=== PATIENT | male | born 1985 | race Caucasian/White ===

== ENCOUNTER 2019-01-09 06:45 | Emergency (ER) | payer MEDICAID ==
[~2019-01-09] VITALS: Ht 180.3 cm; Wt 138.1 kg
[2019-01-09 06:50] VITALS: BP 168/102
--- NOTE | 2019-01-09 06:50 | NUR ---
AMBULATED TO ER BED 7
--- NOTE | 2019-01-09 07:24 | NUR ---
PT C/O OF EYE PAIN BILATERAL X 3 DAYS. LEFT EYE HAS SWELLING REDNESS AND SOME MILD DISCHARGE AND THE RIGHT EYE HAS SOME MILD SWELLING AND REDNESS. PT DENIES TRAUMA. . DENIES N/V/D; SKIN IS PINK/WARM/DRY; AAOX4 WITH EVEN AND STEADY GAIT; LUNGS CLEAR BL; HR EVEN AND REGULAR; PT DENIES ANY FEVER, CP, SOB, OR COUGH AT THIS TIME; PATIENT STATES PAIN OF 8/10 AT THIS TIME; VSS; PATIENT POSITIONED FOR COMFORT; HOB ELEVATED; BEDRAILS UP X2; BED DOWN. ER MD MADE AWARE OF PT STATUS.
[2019-01-09] MEDS ORDERED: KETOROLAC 15 MG/ML VIAL IM ONE (08:10)
[2019-01-09] MEDS ORDERED: CLINDAMYCIN 150 MG CAP PO ONE (08:10)
[2019-01-09] MEDS ORDERED: AMOXICILLIN 500 MG CAP PO ONE ×2 (08:20→08:30)
[2019-01-09] MEDS ORDERED: AMOXICILLIN SUSP 250 MG/5 ML PO SCH (09:00)
--- NOTE | 2019-01-09 09:33 | NUR ---
visual acuity L 20/20 AND R 20/20.
[2019-01-09 09:37] VITALS: BP 138/89
--- NOTE | 2019-01-09 09:38 | NUR ---
Patient discharged with v/s stable. Written and verbal after care instructions given and explained. Patient alert, oriented and verbalized understanding of instructions. Ambulatory with steady gait. All questions addressed prior to discharge. ID band removed. Patient advised to follow up with PMD. Rx of clindamycin and amoxicillin given. Patient educated on indication of medication including possible reaction and side effects. Opportunity to ask questions provided and answered.
== END 2019-01-09 09:38 | disposition home or self-care (01) ==
LOC: MED 06:45
DX: H05.012 Cellulitis of left orbit (principal)
CPT/HCPCS: 96372; 99283; J1885

== ENCOUNTER 2020-03-30 04:00 | Emergency (ER) | payer MEDICAID ==
[~2020-03-30] VITALS: Ht 180.3 cm; Wt 136.1 kg
--- NOTE | 2020-03-30 04:19 | NUR ---
PT AMBULATED TO BED 09 WITH STEADY GAIT.
--- NOTE | 2020-03-30 04:30 | NUR ---
34 Y/O MALE PRESENTED TO ED C/O LUQ/LLQ ABD PAIN X 30 MIN . PT STATES HE SUDDENLY STARTED HAVING LEFT ABD PAIN THAT RADIATES TO HIS LEFT GROIN. PT DENIES N/V/D/F/DYSURIA. PT NORMOACTIVE BS IN ALL 4 QUADS. UPON PALPATION ABDOMEN ROUND, SOFT AND TENDER TO TOUCH ON LEFT SIDE. PT DENIES SOB. PT STATES HE HAS NOT TAKEN ANY MEDICATION FOR THE PAIN. PT BREATHING EVEN AND UNLABORED. A/O X 4. PT RESTING IN BED , LOCKED AND IN LOWEST POSITION, HOB ELEVATED , SIDE RAIL X 1. PT CONNECTED TO LOOM INSPECTOR , PULSE OX AND BP CUFF. PMH: PT DENIES NKA
--- NOTE | 2020-03-30 04:37 | NUR ---
Dr. Alvarez examining patient.
--- NOTE | 2020-03-30 04:45 | NUR ---
BLOOD LABS AND URINE SAMPLE COLLECTED AND WALKED TO LAB.
[2020-03-30] MEDS ORDERED: ONDANSETRON 4 MG/2 ML VIAL IVP ONE (04:50)
[2020-03-30] MEDS ORDERED: MORPHINE SULFATE 4 MG/ML SYR IVP ONE (04:50)
[2020-03-30 05:01] LABS: APPEARANCE,URINE CLEAR (CLEAR); BILIRUBIN,URINE NEGATIVE (NEGATIVE); BLOOD, URINE 1+ (NEGATIVE); COLOR,URINE YELLOW (YELLOW); LEUKOCYTE ESTERASE ,URINE NEGATIVE (NEGATIVE); NITRITE, URINE NEGATIVE (NEGATIVE); UGLUCOSE NEGATIVE (NEGATIVE)
[2020-03-30 05:06] LABS: BASOPHILS # (AUTO) 0.1 K/uL (0.00-0.22); EOSINOPHILS # (AUTO) 0.2 K/uL (0-0.4); EOSINOPHILS % (AUTO) 2.1 % (0.0-4.0); HEMATOCRIT 46.2 % (36-52); HEMOGLOBIN 15.1 g/dL (12.0-18.0); LYMPHOCYTES # (AUTO) 3.1 K/uL (2.0-11.5); LYMPHOCYTES % (AUTO) 37.2 % (20.5-51.1); MEAN CORPUSCULAR HEMOGLOBIN 26 pg (27-31); MEAN CORPUSCULAR HGB CONC 33 g/dL (33-37); MEAN CORPUSCULAR VOLUME 80.6 fL (80-94); MONOCYTES # (AUTO) 0.8 K/uL (0.8-1.0); MONOCYTES % (AUTO) 9.9 % (1.7-9.3); NEUTROPHILS # (AUTO) 4.2 K/uL (1.8-7.7); NEUTROPHILS % (AUTO) 49.8 % (42.2-75.2); PLATELET COUNT (AUTO) 306 K/uL (140-450); RED BLOOD CELL COUNT(AUTO) 5.73 MIL/uL (4.20-6.10); RED CELL DISTRIBUTION WIDTH 15.1 % (11.6-13.7); WHITE BLOOD COUNT (AUTO) 8.4 K/uL (4.8-10.8)
--- NOTE | 2020-03-30 05:10 | NUR ---
PT TO CT VIA W/C.
[2020-03-30 05:12] LABS: WBC,URINE 0-5 /HPF (0-5)
--- NOTE | 2020-03-30 05:19 | NUR ---
PT RETURN FROM CT
[2020-03-30 05:32] LABS: ALBUMIN 3.4 g/dL (3.4-5.0); ANION GAP 14.9 (8-16); CARBON DIOXIDE 24.8 mmol/L (21-32); POTASSIUM 3.7 mmol/L (3.5-5.1); TOTAL BILIRUBIN 0.2 mg/dL (0.0-1.0)
[2020-03-30] MEDS ORDERED: KETOROLAC 15 MG/ML VIAL IVP ONE (06:05)
[2020-03-30 06:29] VITALS: BP 119/67
== END 2020-03-30 06:29 | disposition home or self-care (01) ==
LOC: MED 04:00
DX: K59.00 Constipation, unspecified (principal); K86.9 Disease of pancreas, unspecified; K37 Unspecified appendicitis; K81.9 Cholecystitis, unspecified
CPT/HCPCS: 36415; 74176; 80053; 81001; 83690; 85025; 96374; 96375; 99284; J1885; J2270; J2405; 81002

== ENCOUNTER 2020-06-01 14:36 | Emergency (ER) | payer MEDICAID ==
[~2020-06-01] VITALS: Ht 180.3 cm; Wt 136.1 kg
[2020-06-01 14:47] VITALS: BP 151/93
[2020-06-01] MEDS ORDERED: NACL 0.9% 1,000 ML IV ONE (15:05)
[2020-06-01] MEDS ORDERED: KETOROLAC 30 MG/ML VIAL IVP ONE (15:05)
[2020-06-01 16:15] VITALS: BP 144/89
== END 2020-06-01 16:13 | disposition home or self-care (01) ==
LOC: MED 14:36
DX: N20.0 Calculus of kidney (principal); Z87.442 Personal history of urinary calculi
CPT/HCPCS: 81002; 96361; 96374; 99283; J1885; J7030